=== PATIENT | female | born 1940 | race Caucasian/White ===

== ENCOUNTER 2025-01-15 15:29 | Emergency (ER) | payer MEDICARE, SELFPAY ==
[2025-01-15 15:40] VITALS: BP 126/63; PULSE 96; RESP 18; TEMP 36.7; O2SAT 98
--- NOTE | 2025-01-15 16:21 | ED_ITS ---
HPI - General Adult General Chief complaint: Anxiety Stated complaint: aggressive to staff at [facility] Time Seen by Provider: 01/15/25 15:50 History of Present Illness HPI narrative: Patient is an 84-year-old female with history of dementia who presents ER after being combative with staff. Apparently she had made some swings at staff. She is a frail woman. She then received some oral Ativan and was sent here. Patient has no complaints at this time and does not recall the events. Related Data Allergies Allergy/AdvReac Type Severity Reaction Status Date / Time No Known Allergies Allergy Verified 01/15/25 19:03 Review of Systems Review of Systems: ROS unobtainable: Yes unobtainable due to mental status PMFSH Past Medical History Medical History (Updated 01/15/25 @ 19:20 by Michael Torres MD) Dementia Anxiety Social History Social History Substance use type: does not use Exam Narrative: GENERAL: Well-appearing, well-nourished, and in no acute distress. HEAD: Normocephalic, atraumatic. EYES: PERRL and EOMI. Stye right lower lid. ENT: Mucous membranes moist. CHEST: Clear to auscultation. No respiratory distress. HEART: Regular rate and rhythm. Normal peripheral pulses. ABDOMEN: Soft, nontender, nondistended. EXTREMITIES: Normal range of motion. No edema. SKIN: Warm, dry, no rash. NEURO: Alert and oriented x1. PSYCH: Normal mood and affect. Course Course Emergency Course: Patient resting comfortably. No issues here. She does have UTI. First dose of cephalexin here. Discharge back to facility. Vital Signs Vital signs: Vital Signs Temperature 98.0 F 01/15/25 15:40 Pulse Rate 96 01/15/25 15:40 Respiratory Rate 18 01/15/25 15:40 Blood Pressure 126/63 01/15/25 15:40 Pulse Oximetry 98 01/15/25 15:40 Oxygen Delivery Room Air 01/15/25 15:40 Temperature 98.0 F 01/15/25 15:40 Pulse Rate 96 01/15/25 15:40 Respiratory Rate 18 01/15/25 15:40 Blood Pressure 126/63 01/15/25 15:40 Pulse Oximetry 98 01/15/25 15:40 Oxygen Delivery Room Air 01/15/25 15:40 Medical Decision Making Vital Signs Vital Signs: Vital Signs Temperature 98.0 F 01/15/25 15:40 Pulse Rate 96 01/15/25 15:40 Respiratory Rate 18 01/15/25 15:40 Blood Pressure 126/63 01/15/25 15:40 Pulse Oximetry 98 01/15/25 15:40 Oxygen Delivery Room Air 01/15/25 15:40 Temperature 98.0 F 01/15/25 15:40 Pulse Rate 96 01/15/25 15:40 Respiratory Rate 18 01/15/25 15:40 Blood Pressure 126/63 01/15/25 15:40 Pulse Oximetry 98 01/15/25 15:40 Oxygen Delivery Room Air 01/15/25 15:40 Lab Data Labs: Lab Results 01/15/25 Range/Units 18:07 Urine Color Yellow (Yellow) Urine Appearance Cloudy H (Clear) Urine pH 7.0 (5.0-9.0) Ur Specific [place] 1.011 (1.001-1.035) Urine Protein Negative (Negative) mg/dL Urine Glucose (UA) Negative (Negative) mg/dL Urine Ketones Negative (Negative) mg/dL Ur Blood (Man) Trace (Negative) Urine Nitrate Positive H (Negative) Urine Bilirubin Negative (Negative) Urine Urobilinogen 0.2 (<2.0) mg/dL Leukocyte Esterase Rfl 3+ H (Negative) KIMO/UL Urine RBC 0-2 (0-2) /hpf Urine WBC 51-100 H (0-3) /hpf Ur Squamous Epith Cells None seen (Few) /hpf Urine Bacteria 4+ H /hpf Urine Casts 0-2 Discharge Plan Discharge Clinical Impression: Stye, Acute UTI Patient Disposition: Home Condition: Stable Instructions: Urinary Tract Infection in Women (ED), Onofre (ED) Additional Instructions: You should return to the emergency department if you develop severe nausea and vomiting and are unable to keep liquids down, if you develop severe back/flank or stomach pain, or if your symptoms are not clearly improving at home. Patient Language: Turkmen Prescriptions: New cephalexin 500 mg capsule 500 mg PO Q12H Qty: 14 0RF erythromycin 5 mg/gram (0.5 %) ointment 0.5 inch RIGHT EYE QID Qty: 3.5 0RF Follow-up/Referrals: Ronnell,Dario Pastrana MD [Primary Care Provider] - 1 Week
[2025-01-15 18:43] LABS: Add Urine Microscopic? YES; Appearance Urine Cloudy (Clear); Glucose Urine UA Negative (Negative); Leukocyte Esterase Ur 3+ LEU/UL (Negative); Nitrate Urine Positive (Negative); Non Pathogenic Casts 0-2; Specific Grav Ur 1.011 (1.001-1.035)
[2025-01-15] MEDS: CEPHALEXIN 500 MG CAPSULE PO (19:10)
--- NOTE | 2025-01-15 20:03 | PC.NURSE ---
Pt refused vital signs.
== END 2025-01-15 20:05 | disposition home or self-care (01) ==
PROVIDERS: Emergency Provider Emergency Medicine; PCP Internal Medicine
DX: N39.0 Urinary tract infection, site not specified (principal); H00.012 Hordeolum externum right lower eyelid; F41.9 Anxiety disorder, unspecified; F03.90 Unspecified dementia, unspecified severity, without behavioral disturbance, psychotic disturbance, mood disturbance, and anxiety
CPT/HCPCS: 81001; 87077; 87086; 87186; 99283; A9270

== ENCOUNTER 2025-01-17 07:35 | Emergency (ER) | payer MEDICARE, SELFPAY ==
--- OUTSIDE RECORDS SUMMARY | 2009-11-16 03:45 | XMS_ITS | Continuity of Care Document ---
Author Organization [facility] Address [address] [facility] [address] [place] [address] Phone Care Team Providers Care Vacuum Drier Tender Name Role Phone Michael Cee Unavailable Unavailable [...] Copied on Encounter Office/outpat ient Visit, Est [facility], [address], [place], [place], [address], [place] tel:[phone] [facility] No Information 6201 0 Jaye Rodriguez. [address] [place] , [address], [place], [address], [place]. tel:[phone] [facility], [address], [place], [place], [address], [place] tel:[phone] [facility] No Information 3-201 0 [facility] . [address] [facility], [address], [place], [place], [address], [place]. tel:[phone] Referring Provider: Michael Coker, [facility] [address], [place], [address]. tel:[phone] slade Provider: Fabian Collins, [facility], [place], [address]. tel:[phone] Office/outpat ient Visit, Est [facility], [address], [place], [place], [address], [place] tel:[phone] [facility] No Information Jaye Rodriguez. [address] [place], [place] [address]ate [place] , [address], [place], [address], [place]. tel:[phone] [facility], [address], [place], [place], [address], [place] tel:[phone] [facility] [place] No Information [facility] . [address] [facility], [address], [place], [place], [address], [place]. tel:[phone] Referring Provider: Michael Coker, [address] [place], [place] [address]ate [place] [address], [place], [address]. tel:[phone] slade Provider: Fabian Collins, [address] [place], [place] [address]ate [address], [place], [address]. tel:[phone] [facility], [address], [place], [place], [address], [place] tel:[phone] [facility] No Information 8 Jaye Rodriguez. [address] [place] [address] , [address], [place], [address], [place]. tel:[phone] Office/outpat ient Visit, Est [facility], [address], [place], [place], [address], [place] tel:[phone] [facility] No Information Keagan-0 9-200 8 Jaye [address]. [address] [facility] , [address], [place], [address], [place]. tel:[phone] [facility], [address], [place], [place], [address], [place] tel:[phone] [facility] No Information Dec-0 3-200 7 Jaye Rodriguez. [address] [facility] , [address], [place], [address], [place]. tel:[phone] Family History Family Member Type Diagnosis Age At Onset No Information Payers Payer name Insurance type Covered democrat ID Authordarricka tilulu(s) [place] [id number] [employer] [facility] [id number] Social History Type Description Quantity Date Captured [...]
[2025-01-17] VITALS (7 sets, daily range): BP systolic 122–149; BP diastolic 62–93; PULSE 72–99; RESP 16–23; TEMP 36.7; O2SAT 96–100
--- NOTE | ~2025-01-17 | CT_ITS ---
EXAM: CT brain wo con - 01/17/2025 8:10 CDT History: 84 years old Female with fall COMPARISON: None available. PROCEDURE: CT of the head without contrast. Axial, sagittal and coronal reformatted planes were evaluated. Automatic exposure control was used for this study. FINDINGS: BRAIN PARENCHYMA: No acute hemorrhage. No mass effect or herniation. Kennedy-white matter differentiation is maintained. Mild chronic volume loss. Scattered hypodensities in subcortical and periventricular white matter, likely representing chronic microvascular ischemic changes in this age group. Atherosc lerotic calcification of the intracranial vessels is noted. VENTRICLES/ EXTRA-AXIAL SPACES: No hydrocephalus or extra-axial fluid collection. EXTRACRANIAL STRUCTURES: No calvarial fracture. Nonobstructive paranasal sinus mucosal disease. IMPRESSION: 1. No evidence for acute intracranial hemorrhage or calvarial fracture. 2. Nonobstructive paranasal sinus mucosal disease, as described above. Correlate clinically for acute sinusitis. Reviewed, dictated and finalized at location N. IMPRESSION: 1. No evidence for acute intracranial hemorrhage or calvarial fracture. 2. Nonobstructive paranasal sinus mucosal disease, as described above. Correla te clinically for acute sinusitis.
--- NOTE | ~2025-01-17 | CT_ITS ---
EXAM: CT thoracic lumbar wo con - 01/17/2025 8:10 CDT History: 84 years old Female with fall Comparison None Technique Thin helical images obtained without intravenous contrast according to standard protocol. Coronal and sagittal reformatted images are provided. Findings No fracture or gross subluxation is appreciated. Alignment is satisfactory. Multilevel degenerative changes are seen in the spine. No intraspinal or paraspinal mass or hematoma appreciated. No significant lesion of the visualized airway or lungs. 1.7 cm right renal calculus. 3.7 cm simple cyst in the right adnexa. No gross mass or adenopathy identified, considering lack of IV contrast for this exam. Impression: 1. No acute abnormality of the thoracic or lumbar spine detected by CT. Reviewed, dictated and finalized at location N. Impression: 1. No acute abnormality of the thoracic or lumbar spine detected by CT.
--- NOTE | ~2025-01-17 | CT_ITS ---
EXAMINATION: CT cervical spine wo con COMPARISON: None HISTORY: fall TECHNIQUE: Axial images were obtained through the spine without IV contrast. Coronal, sagittal reconstruction images were obtained from the axial views. CT scan performed using dose optimization techniques including the following automated exposure control; adjustment of mA and/or kV; use of iterative reconstruction technique. Automatic exposure control was used to reduce radiation dose. Permanent radiation dose record is archived to PACS. FINDINGS: The vertebral heights are intact. No fracture or subluxation. The disc heights are intact. Soft tissues unremarkable. Impression: No acute abnormality. Reviewed, dictated and finalized at location A. Impression: No acute abnormality.
--- NOTE | ~2025-01-17 | XR_ITS ---
EXAMINATION: XR chest 1V DATE: 01/17/2025 08:23 INDICATION: Fall. Confusion. TECHNIQUE: frontal view of the chest was obtained. COMPARISON: None FINDINGS: The lungs are clear with no focal airspace opacities, pulmonary edema, pleural effusion or pneumothorax. The cardiomediastinal silhouette is normal. Large calcified right renal stone in the right upper quadrant. IMPRESSION: 1. No acute cardiopulmonary disease. 2. Right nephrolithiasis. Reviewed, dictated and finalized at location A.
--- NOTE | 2025-01-17 08:03 | ED.FALL ---
HPI - Fall General Chief Complaint: Fall Stated Complaint: glf last noc Time Seen by Provider: 01/17/25 08:01 Source: patient and EMS Mode of arrival: EMS Limitations: dementia History of Present Illness HPI Narrative: 84 years old white female came from [facility] ambulance because of ground level fall on witnessed prior to arrival. History of dementia, patient oriented to her name only, denying any symptoms. Related Data Allergies Allergy/AdvReac Type Severity Reaction Status Date / Time ciprofloxacin Allergy Unknown Unknown Verified 01/17/25 07:53 sulfamethoxazole (From Allergy Unknown Unknown Verified 01/17/25 07:53 Bactrim) trimethoprim (From Bactrim) Allergy Unknown Unknown Verified 01/17/25 07:53 Review of Systems Review of Systems: ROS unobtainable: Yes unobtainable due to mental status PMFSH Past Medical History Medical History Dementia Anxiety Social History Social History Substance use type: does not use Exam Narrative: General appearance: Well-developed, well-nourished Skin: Normal color, abrasion on the right lower leg, Head: Normocephalic, nontraumatic Eyes: Clear conjunctiva ENT: Oropharynx normal, ears normal, nose normal Neck: Supple, nontender Chest and respiratory: Airway patent, no respiratory distress, no accessory muscle use Heart: Regular rate/rhythm Abdomen: Soft, nontender, no organomegaly, quiet bowel sounds Vascular: Normal peripheral pulses, normal capillary refill. Musculoskeletal: Normal range of motion, nontender back Neurologic: Alert and oriented to her name only Course Vital Signs Vital signs: Vital Signs Temperature 36.7 C 01/17/25 07:39 Pulse Rate 72 01/17/25 07:39 Respiratory Rate 20 01/17/25 07:39 Blood Pressure 126/75 01/17/25 07:39 Pulse Oximetry 97 01/17/25 07:39 Oxygen Delivery Room Air 01/17/25 07:39 Temperature 36.7 C 01/17/25 07:39 Pulse Rate 86 01/17/25 10:01 Respiratory Rate 19 01/17/25 10:01 Blood Pressure 129/66 01/17/25 10:01 Pulse Oximetry 100 09/16/25 10:01 Oxygen Delivery Room Air 01/17/25 07:39 MDM - Fall MDM Narrative Medical decision making narrative: patient came with ground level fall, vital signs are stable Physical examination remarkable for dementia and slight abrasion on right lower leg, patient able to move all extremities without limitation CT head, cervical spine, thoracic spine and lumbar spine showed no acute osseous abnormality Blood workup today includes CBC, CMP showed elevated CPK 485 with normal BUN ,creatinine Urinalysis showed no significant evidence of infection Discharge back to [facility], encourage fluid intake, fall prevention protocol the pt was discharged to [facility].the pt,s condition upon discharge was fair,education was provided to the pt, family in reference to the final impression,discharge study results,treatment,prognosis and need for follow up . Differential Diagnosis Differential diagnosis: Likely other ( electrolyte imbalance, urinary tract infection, dehydration) Medical Records Attestation: I reviewed the patient's medical records. Lab Data Attestation: I reviewed the patient's lab results. 01/17/25 08:34 01/17/25 08:34 Labs: Lab Results 01/17/25 01/17/25 Range/Units 08:34 09:09 WBC 7.1 (4.5-10.0) K/mm3 RBC 4.12 L (4.2-5.4) M/mm3 Hgb 12.5 (12.0-15.0) g/dL Hct 38.4 (37.0-47.0) % MCV 93.2 (80-100) fl MCH 30.3 (26-34) pg MCHC 32.6 (32-36) g/dl RDW 12.4 (11.5-14.5) % Plt Count 183 (150-375) k/mm3 MPV 9.5 (7.4-10.4) fl Immature Gran % (Auto) 0.1 (0-0.5) % Neut % (Auto) 80.3 H (45.5-73.1) % Lymph % (Auto) 10.0 L (18.3-44.2) % [place] % (Auto) 8.6 H (2.6-8.5) % Eos % (Auto) 0.6 (0-4.4) % Baso % (Auto) 0.4 (0.2-1.2) % Lymph # (Auto) 0.71 L (0.9-3.2) K/mm3 [place] # (Auto) 0.6 (0.1-0.6) K/mm3 Eos # (Auto) 0.0 (0-0.3) K/mm3 Baso # (Auto) 0.0 (0.0-0.1) K/mm3 Abs Immat Gran (auto) 0.01 (0.00-0.031) K/mm3 Absolute Neuts (auto) 5.7 (1.3-6.7) K/mm3 Absolute Nucleated RBC 0.000 (0.0-0.012) K/mm3 Nucleated RBC % 0.0 (0.0-0.2) % Sodium 138 (137-145) mmol/L Potassium 3.6 (3.4-5.0) mmol/L Chloride 103 (98-107) mmol/L Carbon Dioxide 29 (22-30) mmol/L Anion Gap 6 (4-12) mmol/L BUN 15 (7-17) mg/dL Creatinine 0.60 L (0.7-1.0) mg/dL Estim Creat Clear Calc 48 ml/min Estimated GFR > 60 (59 - ) Glucose 106 (65-110) mg/dL Calcium 9.1 (8.4-10.2) mg/dL Total Bilirubin 1.3 (0.2-1.3) mg/dL AST 47 H (14-36) U/L ALT 20 (6-35) U/L Alkaline Phosphatase 97 (38-126) U/L Total Creatine Kinase 485 H (30-135) U/L Total Protein 7.7 (6.3-8.2) g/dL Albumin 4.0 (3.5-5.1) g/dL Urine Color Yellow (Yellow) Urine Appearance Clear (Clear) Urine pH 6.0 (5.0-9.0) Ur Specific [place] 1.018 (1.001-1.035) Urine Protein Trace (Negative) mg/dL Urine Glucose (UA) Negative (Negative) mg/dL Urine Ketones Trace H (Negative) mg/dL Ur Blood (Man) Negative (Negative) Urine Nitrate Negative (Negative) Urine Bilirubin Negative (Negative) Urine Urobilinogen 0.2 (<2.0) mg/dL Add Ur Microanalysis Reviewed Leukocyte Esterase Rfl 1+ H (Negative) KIMO/UL Urine RBC 0-2 (0-2) /hpf Urine WBC 0-5 (0-3) /hpf Ur Squamous Epith Cells None seen (Few) /hpf Urine Bacteria None seen /hpf Urine Casts 0-2 Imaging Data Radiologist's impression: Impressions Cervical Spine CT 01/17/25 08:20 Impression: No acute abnormality. Head CT 01/17/25 08:20 IMPRESSION: 1. No evidence for acute intracranial hemorrhage or calvarial fracture. 2. Nonobstructive paranasal sinus mucosal disease, as described above. Correlate clinically for acute sinusitis. Thoracic/Lumbar Spine CT 01/17/25 08:23 Impression: 1. No acute abnormality of the thoracic or lumbar spine detected by CT. Chest X-Ray 01/17/25 08:27 IMPRESSION: 1. No acute cardiopulmonary disease. 2. Right nephrolithiasis. Critical Care Time Critical Care Time Critical Care Time: No Discharge Plan Discharge Clinical Impression: Fall Patient Disposition: [facility] Skilled Nursing/Asst Living Condition: Stable Instructions: Fall Prevention for Older Adults (ED), Abrasion (ED) Additional Instructions: Return if symptoms are worsening , call your family physician for appointment, take Tylenol as as needed for aches and pain, continue home medications. Encourage fluid intake Patient Language: Citizen Of [place] Prescriptions: No Action cephalexin 500 mg capsule 500 mg PO Q12H Qty: 14 0RF erythromycin 5 mg/gram (0.5 %) ointment 0.5 inch RIGHT EYE QID Qty: 3.5 0RF Follow-up/Referrals: Ronnell,Dario Pastrana MD [Primary Care Provider]
[2025-01-17 08:41] LABS: Hematocrit 38.4 % (37.0-47.0); Hemoglobin 12.5 g/dL (12.0-15.0); Immature Granulocyte Percent A 0.1 % (0-0.5); Lymphocytes Absolute Auto 0.71 K/mm3 (0.9-3.2); Mean Corpuscular HGB Conc 32.6 g/dl (32-36); Mean Corpuscular Hemoglobin 30.3 pg (26-34); Mean Corpuscular Volume 93.2 fl (80-100); Nucleated Red Blood Cells Absolute Auto 0.000 K/mm3 (0.0-0.012); Nucleated Red Blood Cells Perc 0.0 % (0.0-0.2); Platelet Count Result 183 k/mm3 (150-375); Red Blood Count 4.12 M/mm3 (4.2-5.4); White Blood Count 7.1 K/mm3 (4.5-10.0)
--- OUTSIDE RECORDS SUMMARY | 2025-01-17 08:45 | XMS_ITS | Encounter Summary ---
Author Organization [facility] Address [address] [place] [address] Care Team Providers Care Credit Review Manager Name Role Phone Unavailable Primary Care Provider Unavailabl e Encounter Details Date Type Department Care Team (Late st Contact Info) Description 12/25/2022 Lab Requisition [facility] - DermPath Lab [address] [place] [id number] Kendell Brar MD [address] [place], [place] [id number] Social History Tobacco Use Types Packs/Day Years Used Date Smoking Tobacco: Never Assessed Comments Unknown Sex and Gender Information Value Date Recorded Sex Assigned at Not on file Legal Sex Female 5:21 PM CDT Gender Identity Not on file Sexual Orientation Not on file documented as of this encounter Plan of Treatment Not on file documented as of this encounter Procedures Procedure Name Priority Date/Time Associated Diagnosis Comments DERMATOPATHOLOGY Routine 12/24/2022 12:0 0 AM CDT documented in this encounter Results * DERMATOPATHOLOGY (12/24/2022 12:00 AM CDT) Case Report Dermatopathology Report Case: [id number] Authorizing Provider: Kendell Brar MD Collected: 12/24/2022 12:00 AM Ordering Location: [facility] DermPath Lab Received: 12/26/2022 08:55 AM Pathologist: Renu Babcock MD Specimen: Skin, floor of left cavum of the yessenia 3:35 PM CDT DERMATOPATHOLOGY LABORATORY Final Diagnosis Specimen A. SKIN, floor of left cavum of the yessenia: EPIDERMOID CYST (L72.0) 3:35 PM CDT DERMATOPATHOLOGY LABORATORY at 1535 CDT Clinical History R/O Cyst 3:35 PM T DERMATOPATHOLOGY LABORATORY Gross Description Specimen A: Received is one formalin filled container labeled with the patient's name and designated floor of left cavum of the yessenia. The specimen consists of a shave biopsy multiple pieces, measuring 15x5x1 mm. Jar 0. 3:35 PM [facility] DERMATOPATHOLOGY LABORATORY Microscopic Description Specimen A. SKIN, floor of left cavum of the yessenia: Within the dermis, there is a space lined by epithelium that resembles normal epidermis and the infundibular portion of the hair follicle. 3:35 PM T DERMATOPATHOLOGY LABORATORY Disclaimer An external and internal positive and negative controls are appropriate for the histochemical, immunohistochemical and immunofluorescence stain(s) in this case (if any), except where stated explicitly. The performance characteristics of the stain(s) cited in this report were developed and its performance characteristic determined by the Dermatopathology Laboratory at [facility], directed by Dr. Mihai Mclain. These tests need not be, and therefore are not, approved by the [place] Food and Drug Administration. The tests are used for clinical purposes. Billing Codes Specimen Charges Stain Charges 64685 1 3:35 PM T DERMATOPATHOLOGY LABORATORY Embedded Images 3:35 PM T DERMATOPATHOLOGY LABORATORY Pathology/Cytolog y TISSUE SPECIMEN FROM SKIN / Unknown 12/24/2022 12/26/2022 8:55 AM CDT Kendell Brar MD LAB - PATHOLOGY/CYTOLOGY ORD ERABLES Final Result DERMATOPATHOLOGY LABORATORY [facility] - Department of Dermatology [address], [address] [phone] documented in this encounter Visit Diagnoses Not on filedocumented in this encounter
--- OUTSIDE RECORDS SUMMARY | 2025-01-17 08:45 | XMS_ITS | Encounter Summary ---
Author Organization [facility] Address [address] [facility] [place] [address] Care Team Providers Care Equipment Specialist Name Role Phone Unavailable Primary Care Provider Unavailabl e Encounter Details Date Type Department Care Team (Late st Contact Info) Description 02/08/2020 Lab Requisition [facility] DermPath Lab [address] [place] [address] Kendell Brar MD [address] [place] [address] Social History Tobacco Use Types Packs/Day Years [...] Priority Date/Time Associated Diagnosis Comments DERMATOPATHOLOGY Routine 02/07/2020 12:0 0 AM CDT documented in this encounter Results * DERMATOPATHOLOGY (02/07/2020 12:00 AM CDT) Case Report Dermatopathology Report Case: [id number] Authorizing Provider: Kendell Brar MD Collected: 02/07/2020 12:00 AM Ordering Location: [facility] DermPath Lab Received: 02/08/2020 01:14 PM Pathologist: Skye Galdamez MD Specimen: Skin, right mid lat back 0 3:17 PM CDT DERMATOPATHOLOGY LABORATORY Final Diagnosis Specimen A. SKIN, right mid lat back: SEBORRHEIC KERATOSIS, INFLAMED (L82.0) 0 3:17 PM CDT DERMATOPATHOLOGY LABORATORY at 1516 CDT Clinical History R/o ISK, BCC, melanocyte lesion 0 3:17 PM CDT DERMATOPATHOLOGY LABORATORY Gross Description Specimen A: Received is one formalin filled container labeled with the patient's name and designated right mid lat back. The specimen consists of a shave biopsy measuring 10x9x1 mm. Jar 0. 0 3:17 PM CDT DERMATOPATHOLOGY LABORATORY Microscopic Description Specimen A. SKIN, right mid lat back: There is hyperkeratosis, parakeratosis, papillomatosis, and acanthosis of the epidermis. There is a lymphohistiocytic infiltrate within the papillary dermis that is focally lichenoid. 0 3:17 PM CDT DERMATOPATHOLOGY LABORATORY Disclaimer An external and internal positive and negative controls are appropriate for the histochemical, immunohistochemical and immunofluorescence stain(s) in this case (if any), except where stated explicitly. The performance characteristics of the stain(s) cited in this report were developed and its performance characteristic determined by the Dermatopathology Laboratory at [facility], directed by Dr. Mihai Mclain. These tests need not be, and therefore are not, approved by the [place] Food and Drug Administration. The tests are used for clinical purposes. Billing Codes Specimen Charges Stain Charges 53305 1 0 3:17 PM CDT DERMATOPATHOLOGY LABORATORY Embedded Images 0 3:17 PM CDT DERMATOPATHOLOGY LABORATORY Pathology/Cytolog y TISSUE SPECIMEN FROM SKIN / Unknown 02/07/2020 02/08/2020 1:14 PM CDT Kendell Brar MD LAB - PATHOLOGY/CYTOLOGY ORD ERABLES Final Result DERMATOPATHOLOGY LABORATORY [facility] - Department of Dermatology [address], [address] [phone] documented in this encounter Visit Diagnoses Not on filedocumented in this encounter
--- OUTSIDE RECORDS SUMMARY | 2025-01-17 08:45 | XMS_ITS | Clinical Summary ---
Author Organization [facility] Address [address] [place] [address] Care Team Providers Care Fancy Sewer Name Role Phone Unavailable Primary Care Provider Unavailabl e Source Comments [facility],non-owned Affiliates and Associated Physician Practices is amultiple site organization consisting of ambulatory clinics and hospital sitesin [place], [place], [place] and [place]. This disclosure is being madepursuant to the Care Everywhere program and may not contain all information available regarding this patient. Last updated 18.[facility] Doctor kinetic Social History Tobacco Use Types Packs/Day Years Used Date Smoking Tobacco: Never Assessed Comments Unknown Sex and Gender Information Value Date Recorded Sex Assigned at Not on file Legal Sex Female 5:21 PM CDT Gender Identity Not on file Sexual Orientation Not on file Plan of Treatment Health Maintenance Due Date Last Done Comments BONE DENSITY TESTING 1938 DTAP/TDAP/TD VACCINES (1 - Tdap) 1957 PNEUMOCOCCAL VACCINE 50+ (1 of 1 - PCV) 1988 ZOSTER VACCINE (1 of 2) 1988 Respiratory Syncytial Virus (RSV) Vaccine Pt: or over 60 yrs (1 - 1-dose 75+ series) 2013 DEPRESSION SCREENING 2024 MEDICARE AWV CALENDAR YEAR 2024 COVID-19 VACCINE ( - 2023-2 5 season) 2025 INFLUENZA VACCINE (#1) 2025 HEPATITIS B VACCINE Aged Out No longe r eligible based on patient's age to complete this topic HIB VACCINE Aged Out No longer eligi ble based on patient's age to complete this topic HPV VACCINE Aged Out No longer eligi ble based on patient's age to complete this topic MENINGOCOCCAL (Group B) VACC INE SHARED DECISION-MAKING Aged Out No longer eligibl e based on patient's age to complete this topic MENINGOCOCCAL GROUPS A/C/Y/W VACCINE Aged Out No longer eligible b ased on patient's age to complete this topic Insurance MEDICARE [employer] MANAGED MEDICARE ADV
[2025-01-17 09:04] LABS: Alanine Aminotransferase 20 U/L (6-35); Albumin Level 4.0 g/dL (3.5-5.1); Alkaline Phosphatase 97 U/L (38-126); Anion Gap 6 mmol/L (4-12); Aspartate Amino Transferase 47 U/L (14-36); Bilirubin,Total 1.3 mg/dL (0.2-1.3); Blood Urea Nitrogen 15 mg/dL (7-17); Calcium 9.1 mg/dL (8.4-10.2); Carbon Dioxide 29 mmol/L (22-30); Chloride 103 mmol/L (98-107); Creatine Kinase 485 U/L (30-135); Estimated CRCL calculation 48 ml/min; Estimated Glomerular Filt Rate > 60; Glucose 106 mg/dL (65-110); Potassium 3.6 mmol/L (3.4-5.0); Sodium 138 mmol/L (137-145); Total Protein 7.7 g/dL (6.3-8.2)
[2025-01-17 09:38] LABS: Add Urine Microscopic? YES; Appearance Urine Clear (Clear); Glucose Urine UA Negative (Negative); Leukocyte Esterase Ur 1+ LEU/UL (Negative); Need Manual Microscopic Reviewed; Nitrate Urine Negative (Negative); Non Pathogenic Casts 0-2; Specific Grav Ur 1.018 (1.001-1.035)
== END 2025-01-17 11:40 ==
PROVIDERS: Emergency Provider Emergency Medicine; PCP Internal Medicine
DX: S80.811A Abrasion, right lower leg, initial encounter (principal); F03.90 Unspecified dementia, unspecified severity, without behavioral disturbance, psychotic disturbance, mood disturbance, and anxiety; N20.0 Calculus of kidney; W18.30XA Fall on same level, unspecified, initial encounter
CPT/HCPCS: 36415; 70450; 71045; 72125; 72128; 72131; 80053; 81001; 82550; 85025; 87086; 99284

== ENCOUNTER 2025-03-09 17:53 | Emergency (ER) | payer MEDICARE, SELFPAY ==
--- OUTSIDE RECORDS SUMMARY | 2009-11-16 02:45 | XMS_ITS | Continuity of Care Document ---
Author Organization [facility] Address [address] [facility] [address] [place] [address] Phone Care Team Providers Care Winder Operator Name Role Phone Michael Cee Unavailable Unavailable Procedures Procedure Date Office/outpatient Visit, Est Tint Plastic, Non-Nydia Office/outpatient Visit, Est No Script Progressive Lens, Plastic Frames Deluxe Tax - Medical Eye Exam & Treatment Refraction Office/outpatient Visit, Est Eye Exam & Treatment Visual Functional Status Assessed Refraction Advance Directives Directive Yes / No Effective Date File Name No Information Encounters Encounter Description Practice Location Reason(s) For Visit Diagnoses Date Provider Providers Copied on Encounter Office/outpat ient Visit, Est [facility], [address], [place], [place], [address], [place] tel:[phone] [facility] [facility] No Information 201 0 Jaye Rodriguez. [address] , [address], [place], [address], [place]. tel:[phone] [facility], [address], [place], [place], [address], [place] tel:[phone] [facility] [place] [facility] No Information 3-201 0 [facility] . [address] [facility], [address], [place], [place], [address], [place]. tel:[phone] Referring Provider: Michael Coker, [facility] [address], [place], [address]. tel:[phone] slade Provider: Fabian Collins, [facility], [place], [address]. tel:[phone] Office/outpat ient Visit, Est [facility], [address], [place], [place], [address], [place] tel:[phone] [facility] No Information Jaye Rodriguez. [address] [place], [place] [address] , [address], [place], [address], [place]. tel:[phone] [facility], [address], [place], [place], [address], [place] tel:[phone] [facility] [place] No Information [facility] . [address] [facility], [address], [place], [place], [address], [place]. tel:[phone] Referring Provider: Michael Coker, [address] [place], [place] [address], [place], [address]. tel:[phone] slade Provider: Fabian Collins, [address] [place], [place] [address], [place], [address]. tel:[phone] [facility], [address], [place], [place], [address], [place] tel:[phone] [facility] No Information 8 Jaye Rodriguez. [address] [place] [address] , [address], [place], [address], [place]. tel:[phone] Office/outpat ient Visit, Est [facility], [address], [place], [place], [address], [place] tel:[phone] [facility] [facility] No Information Keagan-0 9-200 8 Jaye Edblanca. [address] [facility] , [address], [place], [address], [place]. tel:[phone] [facility], [address], [place], [place], [address], [place] tel:[phone] [facility] [facility] No Information Dec-0 3-200 7 Jaye Rodriguez. [address] [facility] , [address], [place], [address], [place]. tel:[phone] Family History Family Member Type Diagnosis Age At Onset No Information Payers Payer name Insurance type Covered democrat ID Authordarricka tilulu(s) [place] [id number] [employer] [facility] [id number] Social History Type Description Quantity Date Captured Comments Sex Female Smoking Status No Information Chief Complaint And Reason For Visit No Information Reason For Referral Reason For Referral No Information History Of Present Illness Encounter Date Complaint History Of Prese nt Illness No Information Functional Status Date Functional Assessmen t No Information Instructions Date Instruction Additional Infor mation No Information Assessments Type Assessment Date No Information Patient Care Teams Name Effective Dates (start - stop) Status Members No Information
--- OUTSIDE RECORDS SUMMARY | 2009-11-16 02:45 | XMS_ITS | Continuity of Care Document ---
Author Organization [facility] Address [address] [facility] [address] [place] [address] Phone Care Team Providers Care Intercell Connector Placer Name Role Phone Michael Cee Unavailable Unavailable [...] Copied on Encounter Office/outpat ient Visit, Est [facility], [address], [place], [place], [address], [place] tel:[phone] [facility] No Information 201 0 Jaye Rodriguez. [address] , [address], [place], [address], [place]. tel:[phone] [facility], [address], [place], [place], [address], [place] tel:[phone] [facility] No Information 3-201 0 [facility] . [address] [facility], [address], [place], [place], [address], [place]. tel:[phone] Referring Provider: Michael Coker, [facility] [address], [place], [address]. tel:[phone] slade Provider: Fabian Collins, [facility], [place], [address]. tel:[phone] Office/outpat ient Visit, Est [facility], [address], [place], [place], [address], [place] tel:[phone] [facility] No Information Jaye Rodriguez. [address] [place], [place] [address] , [address], [place], [address], [place]. tel:[phone] [facility], [address], [place], [place], [address], [place] tel:[phone] [facility] [place] No Information [facility] . [address] [facility], [address], [place], [place], [address], [place]. tel:[phone] Referring Provider: Michael Coker, [address] [place], [place] [address], [place], [address]. tel:[phone] slade Provider: Fabian Collins, [address] [place], [place] [address]ate [address], [place], [address]. tel:[phone] [facility], [address], [place], [place], [address], [place] tel:[phone] [facility] No Information 8 Jaye Rodriguez. [address] [place] [address] , [address], [place], [address], [place]. tel:[phone] Office/outpat ient Visit, Est [facility], [address], [place], [place], [address], [place] tel:[phone] [facility] No Information Keagan-0 9-200 8 Jaye Ed[place]anca. [address] [facility] , [address], [place], [address], [place]. tel:[phone] [facility], [address], [place], [place], [address], [place] tel:[phone] [facility] No Information Dec-0 3-200 7 Jaye Rodriguez. [address] [facility] , [address], [place], [address], [place]. tel:[phone] Family History Family Member Type Diagnosis Age At Onset No Information Payers Payer name Insurance type Covered green party ID Authordarricka tilulu(s) [place] [id number] [employer] [facility] [id number] Social History Type Description Quantity Date Captured [...]
[2025-03-09 18:02] VITALS: BP 143/78; PULSE 92; RESP 16; TEMP 36.9; O2SAT 99
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
--- OUTSIDE RECORDS SUMMARY | 2025-03-09 21:13 | XMS_ITS | Encounter Summary ---
Author Organization [facility] Address [address] [place] [address] Care Team Providers Care School Office Assistant Name Role Phone Unavailable Primary Care Provider Unavailabl e Encounter Details Date Type Department Care Team (Late st Contact Info) Description 12/25/2022 Lab Requisition [facility] - DermPath Lab [address] [place] [phone] Kendell Brar MD [address] [place], [place] [id number] Social History Tobacco Use Types Packs/Day Years [...] AM CDT) Case Report Dermatopathology Report Case: [id number] Authorizing Provider: Kendell Brar MD Collected: 12/24/2022 12:00 AM Ordering Location: [facility] DermPath Lab Received: 12/26/2022 08:55 AM Pathologist: [...] measuring 15x5x1 mm. Jar 0. 3:35 PM [facility] DERMATOPATHOLOGY LABORATORY Microscopic Description Specimen A. SKIN, [...] characteristic determined by the Dermatopathology Laboratory at [facility], directed by Dr. Mihai Mclain. These tests need not be, and therefore are not, approved by the [place] Food and Drug Administration. The tests are used for clinical purposes. Billing Codes Specimen Charges Stain Charges 08145 1 3:35 PM T DERMATOPATHOLOGY LABORATORY Embedded Images 3:35 PM T DERMATOPATHOLOGY LABORATORY Pathology/Cytolog y TISSUE SPECIMEN FROM SKIN / Unknown 12/24/2022 12/26/2022 8:55 AM CDT Kendell Brar MD LAB - PATHOLOGY/CYTOLOGY ORD ERABLES Final Result DERMATOPATHOLOGY LABORATORY [facility] - Department of Dermatology [address] [phone] documented in this encounter Visit Diagnoses Not on filedocumented in this encounter
--- OUTSIDE RECORDS SUMMARY | 2025-03-09 21:13 | XMS_ITS | Encounter Summary ---
Author Organization [facility] Address [address] [facility] [place] [address] Care Team Providers Care Coring Machine Operator Name Role Phone Unavailable Primary Care Provider Unavailabl e Encounter Details Date Type Department Care Team (Late st Contact Info) Description 02/08/2020 Lab Requisition [facility] DermPath Lab [address] [place] [address] Kendell Brar MD [address] [place] [address] Social History Tobacco Use Types [...] AM CDT) Case Report Dermatopathology Report Case: [id number] Authorizing Provider: Kendell Brar MD Collected: 02/07/2020 12:00 AM Ordering Location: [facility] DermPath Lab Received: 02/08/2020 01:14 PM [...] characteristic determined by the Dermatopathology Laboratory at [facility], directed by Dr. Mihai Mclain. These tests need not be, and therefore are not, approved by the [place] Food and Drug Administration. The tests are used for clinical purposes. Billing Codes Specimen Charges Stain Charges 94852 1 0 3:17 PM CDT DERMATOPATHOLOGY LABORATORY Embedded Images 0 3:17 PM CDT DERMATOPATHOLOGY LABORATORY Pathology/Cytolog y TISSUE SPECIMEN FROM SKIN / Unknown 02/07/2020 02/08/2020 1:14 PM CDT Kendell Brar MD LAB - PATHOLOGY/CYTOLOGY ORD ERABLES Final Result DERMATOPATHOLOGY LABORATORY [facility] - Department of Dermatology [address] [phone] documented in this encounter Visit Diagnoses Not on filedocumented in this encounter
--- OUTSIDE RECORDS SUMMARY | 2025-03-09 21:13 | XMS_ITS | Data Portability ---
Author Organization [facility] All Web Leads, Main Office Address [address] [place] [address] Care Team Providers Care Final Touch Up Painter Name Role Phone REGINA REYNAGA Primary Care Provider REGINA REYNAGA Referring Provider Assessment Encounter Date Assessment Date Assessment LastModified by Organization Details LastModified Time 07/14/2024 07/14/2024 This note is dictated and transcribed by [employer]. Scrapper variances may occur. Despite proofreading, typographical errors may occur. Occasional wrong-word or 'ripiz-o-dqis' substitutions may have occurred due to the inherent limitations of voice recording. Read the chart carefully and recognize, using context, where substitutions have occurred. Not available 07/14/2024 14:35:48 10/20/2024 10/20/2024 This note is dictated and transcribed by [employer]. Scrapper variances may occur. Despite proofreading, typographical errors may occur. Occasional wrong-word or 'itgcn-q-sfnx' substitutions may have occurred due to the inherent limitations of voice recording. Read the chart carefully and recognize, using context, where substitutions have occurred. Not available 10/20/2024 14:34:56 Plan of Treatment Reminders Order Date Submit Date Provider Last Modified By Organization Details Last Modified Time Details Appointments None recorded. Lab vitamin D, 25-hydrox y, total, serum 025 025 [facility] - Outpatient Lab, [address] [place], [address], 09:11:03 vitamin B12, serum 025 025 [facility] - Outpatient Lab, [address] [place], [address], 5 09:10:59 T4, free, serum 025 025 [facility] Outpatient Lab, [address] [place], [address], 5 09:11:00 TSH, serum or plasma 025 025 [facility] Outpatient Lab, [address] [place], [address], 5 09:11:02 CBC w/ auto diff 025 025 [facility] Outpatient [facility], [address] [place], [address], 5 09:10:58 Referral None recorded. Procedures None recorded. Surgeries None recorded. Imaging None recorded. Medication Orders None recorded. Patient TargetsNo targets recorded. 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 Has been followed by Neurology has been put on memantine. No interval complaints of any new problems. Irritable bowel status is stable with looseness. Blood work is adequate see no reason to repeat any at this time. Will continue on current Rx and follow-up in four months Follow Up: 4 Months Approximate Date: 09/20/2024 Portions of the record may have been created with voice recognition software. Occasional wrong-word or s ound-a-like substitutions may have occurred due to the inherent limitations of voice recognition software. Read the chart carefully and recognize, using context, where substitutions have occurred. Created: Regina Reynaga M.D. 05.23.2024 09:45 AM [email or web address] Not available 05/23/2024 10:45:59 09/19/2024 [id number] Dementia, osteoporosis peripheral vascular disease all clinically stable. Will check some blood work in the form of CBC, CMP, thyroid and B12 level. Continue on current Rx follow-up in four months Follow Up: 4 Months Approximate Date: 01/17/2025 Portions of record are template driven. When necessary additional context will be provided. Additionally some portions have been created with voice recognition software. Occasional wrong-word or s ound-a-like substitutions may have occurred due to the inherent limitations of voice recognition software. Read the chart carefully and recognize, using context, where substitutions may have occurred. Created: Regina Reynaga M.D. 09.19.2024 10:43 AM [email or web address] Not available 09/19/2024 11:44:00 Reason for Referral None Reported. Results Created Date Observation Date Name Description Value Unit Range Abnormal Flag Note LastModifiedBy Organization Detail LastModifiedTime 09/23/1909/23/2024 CBC (INCL UDES DIFF/ PLT) white blood cell count 6.2 thous and/u L 3.8-10 .8 normal Not Available [address], [address], 09/23/2024 09:10:58 09/23/1909/23/2024 CBC (INCL UDES DIFF/ PLT) red blood cell count 4.00 janna on/uL 3.80-5 .10 normal Not Available [address], [address], 09/23/2024 09:10:58 09/23/19 25 09/23/2024 CBC (INCL UDES DIFF/ PLT) hemoglobin 12.4 g/dL 11.7-1 5.5 normal Not Available [address], [address], 09/23/2024 09:10:58 09/23/1909/23/2024 CBC (INCL UDES DIFF/ PLT) hematocrit 39.3 % 35.0-4 5.0 normal Not Available [address], [address], 09/23/2024 09:10:58 09/23/1909/23/2024 CBC (INCL UDES DIFF/ PLT) MCV 98.3 fL 80.0-1 00.0 normal Not Available [facility] - [address], [address], 09/23/2024 09:10:58 09/23/1909/23/2024 CBC (INCL UDES DIFF/ PLT) MCH 31.0 pg 27.0-3 3.0 normal Not Available [facility] [address], [address], 09/23/2024 09:10:58 09/23/1909/23/2024 CBC (INCL UDES DIFF/ PLT) MCHC 31.6 g/dL 32.0-3 6.0 low For adult s, a sligh t decre ase in the calcu lated MCHC value (in the range of 30 to 32 g/dL) is most likel y not clini chantel signi fican t; tony er, it shoul d be inter prete d with cauti on in [facility] n with other red cell chantelle eters and the patie nt's clini ryan condi tion. Not Available [facility] [address], [address], 09/23/2024 09:10:58 09/23/1909/23/2024 CBC (INCL UDES DIFF/ PLT) RDW 11.8 % 11.0-1 5.0 normal Not Available [facility] [address], [address], 09/23/2024 09:10:58 09/23/1909/23/2024 CBC (INCL UDES DIFF/ PLT) platelet count 230 thous and/u L 140-40 0 normal Not Available [facility] [address], [address], 09/23/2024 09:10:58 09/23/1909/23/2024 CBC (INCL UDES DIFF/ PLT) MPV 10.3 fL 7.5-12 .5 normal Not Available [facility] [address], [address], 09/23/2024 09:10:58 09/23/19 25 09/23/2024 CBC (INCL UDES DIFF/ PLT) absolute neutrophils 3714 cells /uL 1500-7 800 normal Not Available [address], [address], 09/23/2024 09:10:58 09/23/19 25 09/23/2024 CBC (INCL UDES DIFF/ PLT) absolute lymphocytes 1786 cells /uL 850-39 00 normal Not Available [address], [address], 09/23/2024 09:10:58 09/23/19 25 09/23/2024 CBC (INCL UDES DIFF/ PLT) absolute monocytes 502 cells /uL 200-95 0 normal Not Available [address], [address], 09/23/2024 09:10:58 09/23/19 25 09/23/2024 CBC (INCL UDES DIFF/ PLT) absolute eosinophils 161 cells /uL 15-500 normal Not Available [address], [address], 09/23/2024 09:10:58 09/23/19 25 09/23/2024 CBC (INCL UDES DIFF/ PLT) absolute basophils 37 cells /uL 0-200 normal Not Available [address], [address], 09/23/2024 09:10:58 09/23/19 25 09/23/2024 CBC (INCL UDES DIFF/ PLT) neutrophils 59.9 % normal Not Available [address], [address], 09/23/2024 09:10:58 09/23/19 25 09/23/2024 CBC (INCL UDES DIFF/ PLT) lymphocytes 28.8 % normal Not Available [address], [address], 09/23/2024 09:10:58 09/23/1909/23/2024 CBC (INCL UDES DIFF/ PLT) monocytes 8.1 % normal Not Available [address], [address], 09/23/2024 09:10:58 09/23/1909/23/2024 CBC (INCL UDES DIFF/ PLT) eosinophils 2.6 % normal Not Available [facility] [address], [address], 09/23/2024 09:10:58 09/23/1909/23/2024 CBC (INCL UDES DIFF/ PLT) basophils 0.6 % normal Not Available [address], [address], 09/23/2024 09:10:58 09/23/1909/23/2024 VITAM IN B12 vitamin B12 373 pg/mL 200-11 00 normal Pleas e Note: Altho ugh the refer ence range for vitam in B12 is 200-1 100 pg/mL , it has been repor rosemary that betwe en 5 and 10% of patie nts with value s betwe en 200 and 400 pg/mL may exper ience neuro psych iatri c and hemat ologi c abnor malit ies due to occul t B12 defic iency ; less than 1% of patie nts with value s above 400 pg/mL will have sympt oms. Not Available [address], [address], 09/23/2024 09:10:59 09/23/1909/23/2024 T4, FREE T4, free 1.2 NG/dL 0.8-1. 8 normal Not Available [address], [address], 09/23/2024 09:11:00 09/23/1909/23/2024 TSH TSH 1.16 mIU/L 0.40-4 .50 normal Not Available [facility] [address] [place], [address], 09/23/2024 09:11:02 09/23/1909/23/2024 VITAM IN D,25- OH,TO TYLER,I A vitamin D,25-oh,tota l,ia 33 NG/mL 30-100 normal Vitam in D Statu s 25-OH Vitam in D: Defic iency : <20 ng/mL Insuf ficie ncy: 20 - 29 ng/mL Optim al: > or = 30 ng/mL For 25-OH Vitam in D testi ng on patie nts on D2-cummins pplem entat ion and patie nts for whom quant itati on of D2 and D3 fract ions is requi red, the [facility](TM ) 25-OH VIT D, (D2,D 3), LC/MS /MS is recom nicole d: order code [id number] (eitan ents >2yrs ). See Note 1 Note 1 For addit ional infor rishi cates e refer to http: //[facility] lilian sanchez.Thiago stDia gnost ics.c om/fa q/FAQ 199 (This link is being provi ded for infor deepthi hargrove/ rosi potter purpo ses only. ) Not Available [facility] [address] , [place], [address], 09/23/2024 09:11:03 01/18/2001/17/2025 CT, cervi ryan spine , w/o contr ast No observ ation record ed. [email or web address] [address], [address], 01/17/2025 15:57:39 01/18/2001/17/2025 XR, chest No observ ation record ed. [email or web address] [address], [address], 01/17/2025 12:47:26 01/18/20 25 01/17/2025 CT, brain , w/o contr ast No observ ation record ed. [address], [place], [address], 01/17/2025 12:47:52 01/18/20 25 01/17/2025 CT, lumba r spine , w/o contr ast No observ ation record ed. [place] [id number] [facility] [address], [place], [address], 01/17/2025 14:04:13 01/30/20 25 01/29/2025 XR, sacru m + coccy x No observ ation record ed. [address] , [place], [address], 01/30/2025 07:01:27 03/07/20 25 03/07/2025 XR, foot, 3 or more view No observ ation record ed. [email or web address] [facility] [address], [place], [address], 03/08/2025 06:57:20 03/08/20 25 03/07/2025 XR, foot, 3 or more view No observ ation record ed. [email or web address] [facility] [address] [place], [place], [address], 03/09/2025 07:05:20 Result Notes None recorded. 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 Not Available [facility] 3 04:36:38 Mammograph y abnormal 338145163 Active Not Available [facility] 3 04:36:38 External hemorrhoid s 49710951 Active Not Available [facility] 3 04:36:38 Calcificat ion of breast 388006334 Active Not Available [facility] 3 04:36:39 Breast arterial calcificat ion 594376941 Active Not Available [facility] 3 04:36:39 Acute upper respirator y infection 15956845 Active Not Available [facility] 3 04:36:39 Osteoporos is 64865545 Active 2017 Not Available [facility] 3 04:36:39 Hang nail 1750223 Active 2018 Not Available [facility] 3 04:36:38 Dry skin 99944357 Active 2018 Not Available [facility] 3 04:36:38 Peripheral arterial occlusive disease 956429824 Active 2018 Not Available [facility] 3 04:36:39 Onychomyco sis of toenails 246952370 Active 2018 Not Available [facility] 3 04:36:39 Bursitis 33935688 Active 2018 Not Available [facility] 3 04:36:39 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 6254895667213 9108 Active 2019 Not Available [facility] 3 04:36:38 Pain in toe 855729156 Active 2020 Not Available [facility] 3 04:36:39 Bilateral heel pain 1094723452762 9108 Active 2021 Not Available [facility] 3 04:36:38 Dystrophia unguium 72353987 Active 2021 Elijah Rosario DPM [address], [facility] [address], [place], [address] , [facility] 5 14:35:00 Bursitis of bursa of ankle and/or foot 866383184 Active 2021 Not Available [facility] 3 04:36:39 Bursitis of bursa of ankle and/or foot 264936510 Active 2021 Not Available [facility] 3 04:36:39 Senile osteoporos is 65678197 Active 2021 Not Available [facility] 3 04:36:38 Pain in toe 327042606 Active 2021 Not Available [facility] 3 04:36:38 Acute urinary tract infection 059446582 Active 2022 MITALI Thomas, [place] [facility] 5 16:52:04 Unable to cut own toenails 854773259 Active 2022 Elijah Rosario DPM [address], [address], [place], [address] , [place] [facility] 3 10:14:46 Irritable bowel syndrome characteri zed by constipati on 527930914 Active 2023 Regina Reynaga MD [address], [address], [place], [address] , [place] [facility] 4 11:22:29 Fatigue 55685190 Active 2023 Regina Reynaga MD [address], [address], [place], [address] , [place] [facility] 4 11:27:20 Vitamin D deficiency 13801428 Active 2023 Regina Reynaga MD [address], [address], [place], [address] , [place] [facility] 4 11:27:33 Pain in right arm 485781908 Active 2023 Jerri Shetty CMA null, [place] [facility] 4 15:28:19 Altered mental status 372941201 Active 2023 Regina Reynaga MD [address], [address], [place], [address] , [place] [facility] 4 15:51:24 Dementia 14317560 Active 2023 Jerri Shetty CMA null, [place] [facility] 5 16:53:09 Anxiety 48426969 Active 2024 Regina Reynaga MD [address], [address], [place], [address] , [facility] [place] [facility] 5 14:38:35 Urinary symptoms 044142761 Active 2024 Jerri Shetty CMA null, [place] [facility] 5 14:58:17 Constipati on 80632984 Active 2024 Jerri Shetty CMA null, [place] [facility] 5 15:19:03 Senile dementia 03903856 Active 2024 Jerri Shetty CMA null, [place] [facility] 5 15:34:41 Pain 20902480 Active 2024 Jerri Shetty CMA null, [place] [facility] 5 16:13:05 Dementia with behavioral disturbanc e 2252495662651 Active 2024 Regina Reynaga MD [address], [address], [place], [address] , [facility] 5 13:37:20 Swelling of left foot 722410064 Active 2024 Jerri Shetty CMA null, [facility] [place] [facility] 5 13:53:49 Problem Notes None recorded. Procedures Surgical History Date Name Laterality Status Provider Name and Address Organization Details Recorded Time 5 Nail Debridement completed Elijah Rosario DPM [address], [address], [place], [address], [facility] 10/20/2024 14:34:52 5 Nail Debridement completed Elijah Rosario DPM [address], [address], [place], [address], [facility] 07/14/2024 14:35:44 4 Nail Debridement completed Elijah Rosario DPM [address], [address], [place], [address], [facility] 04/07/2024 17:19:36 4 Nail Debridement completed Elijah Rosario DPM [address], [address], [place], [address], [facility] 01/18/2024 10:29:51 4 Medicare Wellness CPT Code, subsequent completed Dottie Herron RN [facility] 11/23/2023 10:58:17 4 Nail Debridement completed Elijah Rosario DPM [address], [address], [place], [address], [facility] 10/29/2023 13:46:52 4 Nail Debridement completed Elijah Rosario DPM [address], [address], [place], [address], [facility]ku [facility] 07/09/2023 13:47:28 3 Nail Debridement completed Elijah Rosario DPM [address], [address], [place], [address], [facility]ku [facility] 03/12/2023 15:22:54 3 Nail Debridement completed Elijah Rosario DPM [address], [address], [place], [address], [facility]ku [facility] 12/04/2022 14:42:10 3 Medicare Wellness CPT Code, subsequent completed Dottie Herron RN [facility] 11/13/2022 10:43:48 3 Nail Debridement completed Elijah Rosario DPM [address], [place], [address], [facility] 07/22/2022 10:14:07 Imaging Results None recorded. Procedure Notes None recorded. Medical Equipment None Reported. Allergies Allergen ID Allergen Name Allergen Category Reaction Reaction Severity Criticality Documentation Date Start Date Code Code System Note Provider Name and Address Organization Details Recorded Time 66 Cipro medicatio n itching Not available Not available 07/02/2022 21466 3 RxNorm Not Available [facility] 3 04:45:07 6767 Bactrim medicatio n rash Not available Not available 07/02/2022 39246 9 RxNorm Not Available [facility] 3 04:45:07 Medications Name Sig Start Date Stop Date Status Note LastModified by Organization Details LastModified Time quetiapine 25 mg tablet Take one capsule every morning and 2 capsules in the evening 02/23 completed Not Available Not Available Not Available amoxicillin 500 mg capsule Take 1 capsule 3 times a day by oral route for 10 days. 07/28 completed Not Available Not Available Not Available donepezil 5 mg tablet Take 1 tablet every day by oral route. 05/23 completed Not Available Not Available Not Available hydrocodone 5 mg-acetamin ophen 325 mg tablet TK 1 T PO Q 4 H PRN P active Not Available Not Available No t Available prednisone 20 mg tablet TAKE 3 TABLETS DAILY FOR 2 DAYS, TAKE 2 TABLETS DAILY FOR 2 DAYS, TAKE 1 TABLET DAILY FOR 2 DAYS 11/07 completed Not Available Not Available Not Available olanzapine 5 mg tablet Take 1 tablet twice a day by oral route. active Not Available Not Available No t Available triamcinolo ne acetonide 0.025 % lotion APPLY A THIN LAYER TO AFFECTED AREA ON LEFT HEEL BID PRN 05/14 completed Not Available Not Available Not Available quetiapine 100 mg tablet Take 1 tablet twice a day by oral route. 02/23 completed Not Available Not Available Not Available amoxicillin 500 mg tablet Take 1 tablet every 8 hours by oral route. 11/07 completed Not Available Not Available Not Available prednisolon e acetate 1 % eye drops,suspe nsion 05/23 completed Not Available Not Available Not Available lorazepam 0.5 mg tablet Take 1 tablet 3 times a day by oral route as needed, for Anxiety. 03/01 completed Not Available Not Available Not Available cephalexin 500 mg capsule Take 1 capsule 4 times a day by oral route. 2024 active Not Available Not Available Not Avai lable docusate sodium 100 mg capsule Take 1 capsule every day by oral route as needed. active Not Available Not Available No t Available gentamicin 0.1 % topical cream MONICA AA D 07/20 completed Not Available Not Available Not Available hydrocortis one 2.5 % topical cream APPLY EXTERNALL Y TO THE AFFECTED AREA OF FLAKY RASH TWICE DAILY 05/14 completed Not Available Not Available Not Available lorazepam 1 mg tablet Take 1 tablet 3 times a day by oral route. 2024 active Not Available Not Available Not Avai lable ketoconazol e 2 % topical cream APPLY TO THE AFFECTED AREA(S) BY TOPICAL ROUTE ONCE DAILY active Not Available Not Available No t Available cefdinir 300 mg capsule Take 1 capsule every 12 hours by oral route. active Not Available Not Available No t Available neomycin-po lymyxin-hyd rocort 3.5 mg-10,000 unit/mL-1 % ear drops,susp INSTILL 4 DROPS INTO AFFECTED EAR(S) BY OTIC ROUTE 3 TIMES PER DAY 11/07 completed Not Available Not Available Not Available ketorolac 0.4 % eye drops INSTILL 1 DROP IN RIGHT EYE THREE TIMES DAILY 11/07 completed Not Available Not Available Not Available memantine 10 mg tablet Take 1 tablet twice a day by oral route. 11/18 completed Not Available Not Available Not Available PreserVisio n AREDS 4,296 mcg-226 mg-90 mg capsule Take 1 capsule every day by oral route. active Not Available Not Available No t Available quetiapine 50 mg tablet Take 1 tablet twice a day by oral route. 2024 active Not Available Not Available Not Avai lable calcium 500 mg (as carbonate)- vitamin D3 15 mcg (600 unit) tablet Take 1 tablet twice a day by oral route. active Not Available Not Available No t Available [facility] [facility] AREDS-2 05/08 completed Not Available Not Available Not Available Os-Ryan + D3 one twice a day 05/08 completed Not Available Not Available Not Available Tylenol 325 mg capsule take 1 to 2 capsules 4 times a day as needed for pain 2024 active Not Available Not Available Not Avai lable Vitals Date Recorded Body height Body mass index (BMI) Body weight Heart rate Body temperature Oxygen saturation Oxygen saturation in Arterial blood by Pulse oximetry Systolic And Diastolic Provider Name and Address Organization Details Last Updated DateTime 5 160.02 cm 22.1 kg/m2 25526.2 5 g 72 /min 97 [degF] 98 % 98 % 132/70 mm[Hg] Juana [facility] [place] [facility] 5 10:34:35 Date Recorded Body height Body mass index (BMI) Body weight Heart rate Respiratory rate Oxygen saturation Oxygen saturation in Arterial blood by Pulse oximetry Systolic And Diastolic Provider Name and Address Organization Details Last Updated DateTime 5 160.02 cm 22 kg/m2 60955.4 5 g 82 /min 14 /min 98 % 98 % 107/61 mm[Hg] Cordelia [facility] 5 14:03:56 Date Recorded Body height Body mass index (BMI) Body weight Body temperature Heart rate Systolic And Diastolic Provider Name and Address Organization Details Last Updated DateTime 5 160.02 cm 22.1 kg/m2 11114.0 5 g 97.2 [degF] 66 /min 124/74 mm[Hg] RAMON Patel [facility] 5 11:21:39 Date Recorded Body height Body mass index (BMI) Body weight Heart rate Respiratory rate Oxygen saturation Oxygen saturation in Arterial blood by Pulse oximetry Provider Name and Address Organization Details Last Updated DateTime 5 160.02 cm 22.1 kg/m2 41782.0 5 g 71 /min 14 /min 98 % 98 % Cordelia [facility] 5 14:00:55 Date Recorded Body height Body mass index (BMI) Body weight Heart rate Respiratory rate Oxygen saturation Oxygen saturation in Arterial blood by Pulse oximetry Systolic And Diastolic Provider Name and Address Organization Details Last Updated DateTime 4 160.02 cm 22 kg/m2 84135.4 5 g 82 /min 14 /min 97 % 97 % 133/71 mm[Hg] Cordelia Leal [facility] 4 12:14:52 Social History Question Answer Notes LastModified by Organization Details LastModified Time Tobacco Smoking Status Never Smoker Not Available [facility] 07/02/2022 04:19:57 Do You Have An Advance Directive? Yes [email or web address] Information not available 11/23/2023 Are You Blind Or Do You Have Difficulty Seeing? No [id number] Information not available 07/02/2022 What Is Your Level Of Caffeine Consumption? Occasional [id number] Information not available 07/02/2022 In The 14 Days Before Symptom Onset, Have You Had Close Contact With A Laboratory-confi rmed COVID-19 While That Case Was Ill? No [id number] Information not available 07/02/2022 In The 14 Days Before Symptom Onset, Have You Had Close Contact With A Person Who Is Under Investigation For COVID-19 While That Person Was Ill? No MIGRATION.0301 [id number] Information not available 07/02/2022 Are You Deaf Or Do You Have Serious Difficulty Hearing? Yes MIGRATION.0301 [id number] Information not available 07/02/2022 What Type Of Diet Are You Following? REGULAR MIGRATION.0301 [id number] Information not available 07/02/2022 Which Illicit Or Recreational Drugs Have You Used? None MIGRATION.0301 367231 Information not available 07/02/2022 Have There Been Any Changes To Your Family Or Social Situation? No MIGRATION.0301 [id number] Information not available 07/02/2022 What Is The Fluoride Status Of Your Home? Unknown [email or web address] Information not available 11/13/2022 Are There Any Guns Present In Your Home? No [email or web address] Information not available 11/13/2022 Do You Use Insect Repellent Routinely? No MIGRATION.0301 [id number] Information not available 07/02/2022 Where Do You Live? [place]House MIGRATION.0301 888558 Information not available 07/02/2022 Guns Present In The Home? No [email or web address] Information not available 11/13/2022 Are You Able To Care For Yourself? Yes [email or web address] Information not available 11/13/2022 Are You Blind Or Do Yo Have Difficulty Seeing? No [email or web address] Information not available 11/13/2022 Are You Deaf Or Do You Have Serious Difficulty Hearing? Yes Has Hearing Aids [email or web address] Information not available 11/13/2022 Live Alone Of With Others? With Others [email or web address] Information not available 11/13/2022 Do You Have A Medical Power Of Medical Delivery Driver? Yes [email or web address] Information not available 11/23/2023 What Was The Date Of Your Most Recent Tobacco Screening? 11/23/2023 [email or web address] Information not available 11/23/2023 Do You Have Any Pets? No MIGRATION.0301 229158 Information not available 07/02/2022 What Is Your Relationship Status? MIGRATION.0301 333450 Information not available 07/02/2022 Do You Use Your Seat Belt Or Car Seat Routinely? Yes MIGRATION.0301 436347 Information not available 07/02/2022 Do You Have Smoke And Carbon Monoxide Detectors In Your Home? Yes MIGRATION.0301 [id number] Information not available 07/02/2022 Are You Passively Exposed To Smoke? No MIGRATION.0301 [id number] Information not available 07/02/2022 Are There Any Smokers In Your House? No MIGRATION.0301 192052 Information not available 07/02/2022 Do You Use Sunscreen Routinely? No MIGRATION.0301 045142 Information not available 07/02/2022 Have You Recently Traveled Abroad? No MIGRATION.0301 731934 Information not available 07/02/2022 Do You Have Difficulty Walking Or Climbing Stairs? No MIGRATION.0301 418223 Information not available 07/02/2022 Do You Have Any Dietary Restrictions? No MIGRATION.0301 439189 Information not available 07/02/2022 Sex: Female Functional Status Question Answer Note LastModified by Organizat ion Details LastModified Time What is your level of alcohol consumption? None MIGRATION.[id number] 026 Information not available 07/02/2022 Do you have transportation difficulties? No MIGRATION.[id number] 026 Information not available 07/02/2022 Are you able to walk independently without assistance or assistive devices? YESWOREST MIGRATION.[id number] 026 Information not available 07/02/2022 Do you have difficulty doing errands alone? Yes [email or web address] Information not available 11/23/2023 Are you able to care for yourself independently? Yes MIGRATION.[id number] 026 Information not available 07/02/2022 Do you have difficulty dressing, bathing, grooming, or toileting? No MIGRATION.9488153 026 Information not available 07/02/2022 What is your exercise level? Occasional MIGRATION.[id number] 026 Information not available 07/02/2022 Mental Status Question Answer Note LastModified by Organization D etails LastModified Time Do you have difficulty concentrating, remembering or making decisions? Yes [email or web address] Information no t available 11/23/2023 Family History Nothing Reported Notes:Mother 61 from me tastatic Ca of breast Father diedk75 from Dementia and DM One sister living history of renal calculi Medical History Condition Response NERVE DISEASE N BLINDNESS N RHEUMATIC FEVER N KIDNEY STONES N BLADDER PROBLEMS N MRSA N OTHER # 1 N POLIO N LUNG DISEASE/DISORDER N HISTORY OF DRUG ABUSE N COPD N RADIATION / CHEMOTHERAPY N Other # 2 N BLOOD DISEASES N EAR OR HEARING PROBLEMS N MUMPS N SHINGLES N DEPRESSION (INCLUDING POST ) N BOWEL PROBLEMS N STROKE/TIA N ULCERS N BENIGN PROSTATIC HYPERPLASIA N MEASLES N HYPOTENSION N MYOCARDIAL INFARCTION N OBESITY N GERD/NAUSEA N ANEURYSM N URINARY/BLADDER/KIDNEY PROBLEMS N CORONARY ARTERY DISEASE (CAD) N ADDICTION CONCERNS N Impotence N ENDOMETRIOSIS N USE OF BLOOD THINNERS N SKIN PROBLEMS N GASTROINTESTINAL DISORDER N PERIPHERAL VASCULAR DISEASE N MUSCLE,JOINT OR BONE PROBLEMS N GASTROINTESTINAL BLEEDING N BLOOD CLOTS N ASTHMA N CATARACTS N ERECTILE DYSFUNCTION N VARICOSITIES N GI PROBLEMS N Low Testosterone N INFERTILITY N AIDS/HIV N CHEMOTHERAPY / RADIATION N LIVER DISEASE N MALE HYPOGONADISM N HYPERTENSION N Deficiency N TOURETTE'S N ANXIETY DISORDER N BLOOD TRANSFUSION N ANEMIA/BLOOD DISORDER N CHRONIC EAR INFECTIONS N BRONCHITIS N TUBERCULOSIS N GLAUCOMA N FOOT PROBLEM N DIVERTICULITIS N SLEEP APNEA N CHICKENPOX N INFECTIOUS DISEASE N PROSTATE N HEART ARRHYTHMIA N INSOMNIA N HIGH CHOLESTEROL / HYPERLIPIDEMIA N HYPERTHYROIDISM N EYE PROBLEMS N EDEMA N CHRONIC PAIN SYNDROME N HYPOTHYROIDISM N CONSTIPATION N CAROTID BLOCKAGE N BACK / NECK PROBLEMS N HAVE YOU BEEN HOSPITALIZED OR SEEN IN [facility] IN THE PAST YEAR ? N ATHEROSCLEROSIS N BREAST PROBLEMS N DIALYSIS N ECZEMA N OSTEOPOROSIS Y ARTHRITIS N NO SIGNIFICANT PAST MEDICAL HISTORY N APPENDICITIS N DIABETES, TYPE N BAD TEETH N ENT N HEARTBURN / REFLUX N AUTISM SPECTRUM DISORDER (ASD) N HEPATITIS / LIVER DISEASE N GOUT N SLEEP DISORDER N ALZHEIMER'S DISEASE N Brain Problems N HERPES N DEMENTIA N SEIZURES/EPILEPSY N HEADACHES/MIGRAINES N VASCULAR DISEASE N PACEMAKER N Blood Disorder N DIZZINESS N KIDNEY DISEASE N HEART DISEASE/HEART PROBLEMS N MULTIPLE SCLEROSIS N CARDIAC ARRHYTHMIA N CANCER: SPECIFY N Gall Stones N ATRIAL FIBRILLATION N PULMONARY EMBOLISM N AUTOIMMUNE DISEASE N Gynecological HistoryNo gynecological history recorded. Obstetrics History GPAL:G 0 P 0 0 0 0 Immunizations Vaccine Type Date Status Note Provider Nam e and Address Organization Details Recorded Time COVID-19, mRNA, LNP-S, PF, 100 mcg/0.5mL dose or 50 mcg/0.25mL dose completed Not Available [facility] 07/02/2022 04:44:48 SARS-COV-2 (COVID-19) vaccine, UNSPECIFIED 1 completed Not Available [facility] 07/02/2022 04:44:48 SARS-COV-2 (COVID-19) vaccine, UNSPECIFIED 1 completed Not Available [facility] 07/02/2022 04:44:48 Past Encounters Encounter ID Performer Location Encounter Start Date Encounter Closed Date Diagnosis/Indication Diagnosis SNOMED-CT Code Diagnosis ICD10 Code Diagnosis IMO Codes Diagnosis Note [id number] Elijah Rosario DPM [facility] [place] [address] [address] 08/30/2020 00:00:00 08/30/2020 11:32:01 [id number] Regina Reynaga MD [facility] Internal [facility] [address] [address] 09/13/2020 00:00:00 09/13/2020 11:16:48 [id number] S_Histor ic_[facility] _ATHENA_M IGRATION_ DEFAULT_1 _1 , 10/12/2020 00:00:00 10/12/2020 11:59:10 [id number] Agustín Nicole MD [facility] [place] [id number] [facility] [address] [place] [address] 10/29/2020 00:00:00 10/29/2020 16:00:01 [id number] Regina Reynaga MD [facility] [address] [address] 11/07/2020 00:00:00 11/07/2020 14:27:31 [id number] Elijah Rosario DPM [facility] [place] [address] [address] 11/29/2020 00:00:00 11/29/2020 21:43:24 [id number] Elijah Rosario DPM [facility] [place] [address] [address] 02/28/2021 00:00:00 02/28/2021 12:13:07 [id number] Regina Reynaga MD [facility] [address] [address] 05/15/2021 00:00:00 05/15/2021 11:10:57 [id number] Elijah Rosario DPM [facility] [place] [address] [place] [address] 05/30/2021 00:00:00 05/30/2021 13:59:59 [id number] Elijah Rosario DPM [facility] [place] [address] [place] [address] 06/13/2021 00:00:00 06/13/2021 14:04:28 [id number] Elijah Rosario DPM [facility] [place] [address] [place] [address] 08/22/2021 00:00:00 08/22/2021 12:26:32 [id number] Regina Reynaga MD [facility] Internal [facility] [address] [address] 11/06/2021 00:00:00 11/06/2021 10:48:03 [id number] [facility] [address] [place] [address] 11/21/2021 00:00:00 11/21/2021 15:11:46 [id number] Elijah Rosario DPM [facility] [place] [address] [address] 02/20/2022 00:00:00 02/20/2022 14:50:04 [id number] Regina Reynaga MD [facility] [address] [address] 05/08/2022 00:00:00 05/08/2022 11:23:05 [id number] Elijah Rosario DPM [facility] [place] [address] [address] 07/22/2022 09:39:34 07/22/2022 14:12:35 Pain in toe 097074466 M79.676 secondary to elongated toenails Dystrophia unguium 51059 009 L60.3 Nails 1 through 10 were debrided with sharp mechanical debridemen t without incident. Nails were debrided and greater than 50% length and thickness where needed. Unable to cut own toenails 154104537 Z74.1 [id number] Regina Reynaga MD [facility] Internal Med [facility] [address] [address] 11/13/2022 10:26:11 11/13/2022 11:01:38 Adult health examination 585259711 Z00.00 Screening for disorder 109320102 Z13.9 Osteoporosis 37905763 M8 1.0 [id number] Elijah Rosario DPM [facility] [place] [address] [place] [address] 12/04/2022 14:18:22 12/04/2022 14:45:54 Dystrophia unguium 99471337 L60.3 Nails 1 through 10 were debrided with sharp mechanical debridemen t without incident. Nails were debrided and greater than 50% length and thickness where needed. Unable to cut own toenails 255450716 Z74.1 [id number] Elijah Rosario DPM [facility] [place] [address] [place] [address] 03/05/2023 14:49:40 03/13/2023 11:21:18 Onychomycosis of toenails 447952147 B35.1 Nails debrided without incidentMa y utilize over-the-c ounter topical medication Follow-up in 3 months as needed Pain in toe 103385670 M7 9.676 secondary to elongated toenails Unable to cut own toenails 668896717 Z74.1 [id number] Regina Reynaga MD [facility] Internal Med [facility] [address] [address] 05/14/2023 10:51:11 05/14/2023 11:31:07 Osteoporosis 51161092 M81.0 Irritable bowel syndrome characterized by constipation 302424632 K58.1 Screening for cardiovascular system disease 709111206 Z13.6 Fatigue 05766530 R53.83 Vitamin D deficiency 347 49367 E55.9 [id number] Elijah Rosario DPM [facility] [address] [place] [address] 07/09/2023 11:15:51 07/09/2023 13:56:44 Dystrophia unguium 77445357 L60.3 Nails 1 through 10 were debrided with sharp mechanical debridemen t without incident. Nails were debrided and greater than 50% length and thickness where needed. Pain in toe 494161537 M7 9.676 secondary to elongated toenails [id number] [facility] [address] [address] 10/06/2023 12:27:06 10/29/2023 15:08:56 Pain in toe 601631093 M79.676 secondary to elongated toenails Dystrophia unguium 05391 009 L60.3 Nails 1 through 10 were debrided with sharp mechanical debridemen t without incident. Nails were debrided and greater than 50% length and thickness where needed. [id number] MD DAMION Maya[facility] Internal Med [facility] [address] [address] 11/23/2023 10:30:41 11/23/2023 11:32:46 Adult health examination 191993482 Z00.00 Screening for disorder 315768780 Z13.9 Irritable bowel syndrome characterized by constipation 328542384 K58.1 Peripheral arterial occlusive disease 736172052 I73.9 Minimal co gnitive impairment 845073878 R41.89 [id number] Elijah Rosario DPM [facility] [address] [address] 01/05/2024 12:26:28 01/18/2024 13:59:26 Pain in toe 750867753 M79.676 secondary to elongated toenails Dystrophia unguium 20624 009 L60.3 Nails 1 through 10 were debrided with sharp mechanical debridemen t without incident. Nails were debrided and greater than 50% length and thickness where needed. [id number] Regina Reynaga MD [facility] Internal Med [facility] [address] [address] 02/17/2024 15:28:53 02/17/2024 16:17:31 Altered mental status 434578028 R41.82 Memory impairment 759771 006 R41.3 [id number] Regina Reynaga MD [facility] Internal [facility] [address] [address] 03/09/2024 10:33:07 03/09/2024 11:11:25 Dementia 64968521 F03.92 [id number] Elijah Rosario DPM [facility] [place] [address] [address] 04/07/2024 12:11:35 04/29/2024 14:37:29 Dystrophia unguium 13452649 L60.3 Nails 1 through 10 were debrided with sharp mechanical debridemen t without incident. Nails were debrided and greater than 50% length and thickness where needed. Pain in toe 660972689 M7 9.676 secondary to elongated toenails Unable to cut own toenails 703917729 Z74.1 [id number] Regina Reynaga MD [facility] Internal Med [facility] [address] [address] 05/23/2024 10:34:00 05/23/2024 10:51:24 Dementia 85646663 F03.92 Irritable bowel syndrome characterized by constipation 367915664 K58.1 [id number] Elijah Rosario DPM [facility] [place] [address] [place] [address] 07/14/2024 13:54:14 07/19/2024 11:01:52 Pain in toe 046295595 M79.676 secondary to elongated toenails Dystrophia unguium 84343 009 L60.3 Nails 1 through 10 were debrided with sharp mechanical debridemen t without incident. Nails were debrided and greater than 50% length and thickness where needed. [id number] Regina Reynaga MD [facility] Internal Med [facility] [address] [address] 09/19/2024 11:11:23 09/19/2024 11:46:09 Dementia 85641644 F03.92 Peripheral arterial occlusive disease 869427365 I73.9 Osteoporosis 98187358 M8 1.0 [id number] Elijah Rosario DPM [facility] [place] [address] [facility] [place] [address] 10/20/2024 13:18:11 10/24/2024 07:58:19 Dystrophia unguium 85072491 L60.3 1009 Nails 1 through 10 were debrided with sharp mechanical debridemen t without incident. Nails were debrided and greater than 50% length and thickness where needed. Unable to cut own toenails 174866832 Z74.1 Health Concerns Section Related Observation LastModified by Organization Detai ls LastModified Time None Recorded Concern Status LastModified by Organization Details LastModified Time None Recorded Advance Directives Directive Y: Payers Insurance Date Sequence Insurance Name Policy Number Policy Aragon Covered Member ID Aragon Member ID Guarantor Name 07/14/2024 1 [place] Lynn Diamondmidt [id number] Lynn Zhaoschmidt 07/22/2022 2 [place]aya [id number] Elbert Diamondmidt [id number] Lynn Ramo 10/24/2024 1 [facility] (MEDICARE REPLACEMENT/ ADVANTAGE - PPO) [id number] Lynn Zhaoschmidt [id number] Lynn Zhaoschmidt 07/14/2024 2 Panaya Lynn Zhaoschmidt [id number] Lynnsanju Diamondmidt Notes Date Note Type Note Provider Name and Address Organization Details Recorded Time 04/07/20 24 text/htm l . Patient is an 83-year-old female who returns the office for painful toenails. Patient is unable to bend over to cut her nails states they are long and painful. Patient denies any redness or drainage. Patient denies any other complaints. Elijah Rosario, DPM [address], [facility] [address], [place], [address], [place] [facility] 04/07/2024 17:20:12 05/23/19 25 text/htm l Patient Name: Lynn RalphDate Of Service: Thursday ( 05.23.2024 ): 1940 Age: 84 Vital Signs:Blood Pressure: Sitting Rt. Arm 132/70Pulse: Sitting 72 /min and RegularRespiratory Rate: 16Height 63 in or 1.6 mWeight 124.5 lb or 56.5 kgBMI 22.1Temperature: 97 F or 36.1 CPulse Oximetry: 98 % at rest on no oxygen Chief Complaint: Addressed in HPI Problems or conditions discussed in the HPI were the only ones reviewed during the encounter.Only social and family history addressed in the HPI were reviewed during this encounter. Attendant(s): NoneConstitutional and Systemic Symptoms:none Medication Reconciliation: from medication list. Jtthnqslqlr37-18-6062: MRI of the brain shows moderate nonspecific cerebral white matter disease which likely represents chronic small-vessel ischemic disease. History of Present Illness #1. Hx of dementia. Currently stable. There has been no clinical change in cognitive functions. Performance of activities of daily living has remained unchanged. Currently taking Namenda Mini-Cog Score: Mild Cognitive Impairment #2. Hx of irritable bowel syndrome manifested predominately by constipation. No interval complaints of any change in bowel habits, pain, weight loss or other constitutional symptoms. There has been no hematemesis or hematochezia. Active Medication ListOs-ryan D 500 MG One Tid For Calcium ReplacementPreservision Vitamins One DailyMemantine 10 MG TABLET One Twice A DayLinzess 72 UG CAPSULE, GELATIN COATED One Daily Adverse Drug Reactions ReviewedCipro Rash Vaccination and Immunization(X) 2020- COVID [facility] Surgical Djujkeg1588-89 Right Tyebsckd1982-71 Rt. 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 Patient is 84-year-old female who returns the office for follow-up on routine foot care. Patient has thickened elongated toenails she states they are painful with walking she denies any new complaints and would like to have them cut. Elijah Rosario DPM [address], [address], [place], [address], [employer] 07/14/2024 14:36:13 09/20/19 25 text/htm l Patient Name: Lynn RalphDate Of Service: Thursday ( 09.19.2024 ): 1940 Age: 84 Vital Signs:Blood Pressure: Sitting Rt. Arm 124/74Pulse: Sitting 66 /min and RegularRespiratory Rate: 16Height 63 in or 1.6 mWeight 125 lb or 56.7 kgBMI 22.1Temperature: 97.2 F or 36.2 C Chief Complaint: Addressed in HPI Problems or conditions discussed in the HPI were the only ones reviewed during the encounter.Only social and family history addressed in the HPI were reviewed during this encounter. Attendant(s): DaughterConstitutional and Systemic Symptoms:none Medication Reconciliation: from medication list. [id number]: MRI of the brain shows moderate nonspecific cerebral white matter disease which likely represents chronic small-vessel ischemic disease. History of Present Illness #1. Hx of dementia. Currently stable. There has been no clinical change in cognitive functions. Performance of activities of daily living has remained unchanged. Currently taking Namenda Mini-Cog Score: Severe Cognitive Impairment #2. Hx of peripheral vascular disease. There has been no increase in intensity, severity or duration of claudication symptoms. Exertional capacity has remained essentially unchanged. Is able to walk one block without developing any claudication. No rest pain noted. #3. osteoporosis. No new complaints of any additional back,hip or other musculoskeletal complaints related to the osteoporosis. No hx of any recent trauma. Currently taking no medication the patient has refused calcium as well as bisphosphonates. Has has had a recent DEXA scan done within the last year. The FRAX Score for Hip Fracture is NA hx osteoporosis FRAX score for major fractures NA hx of osteoporosis Wellness Evaluation Mini Mental Status Exam Time Score: 1Location Score: 3Registration Score: 3Attention Score: 2Recall Score: 0Language Score: 2Repetition Score: 0Sentence Score: 0Reading Score: 1Pentagons Score: 0Command Score: 0 12 Moderate Impairment No Living Will on File! Active Medication ListOs-ryan D 500 MG One Tid For Calcium Replacement CitracalPreservision Vitamins One Daily Aereds IIMemantine 10 MG TABLET One Bid Adverse Drug Reactions ReviewedCipro Rash Vaccination and ImmunizationImmunizations and Vaccinations Discussed and Implemented if feasible In the Office. Else referred to pharmacies. (X) 2020- COVID [facility] Surgical Mkrcrle6770-36 Right Fafzdsma5218-15 Rt. 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 Patient is 84-year-old female she returns for routine foot care. Patient has dementia she is unable to care for her feet. Patient denies any other complaints. Elijah Rosario DPM [address], [facility] [address], [place], [address], [employer] 10/20/2024 14:35:34 OBGyn Episode No OBEpisode recorded.
--- OUTSIDE RECORDS SUMMARY | 2025-03-09 21:13 | XMS_ITS | Clinical Summary ---
Author Organization [facility] Address [address] [place] [address] Care Team Providers Care Cloth Washer Operator Name Role Phone Unavailable Primary Care Provider Unavailabl e Source Comments [facility],non-owned Affiliates and Associated Physician Practices is amultiple site organization consisting of ambulatory clinics and hospital sitesin [place], [place], [place] and [place]. This disclosure is being madepursuant to the Care Everywhere program and may not contain all information available regarding this patient. Last updated 18.[facility] [employer] Social History Tobacco Use Types Packs/Day Years [...]
[2025-03-09 21:26] VITALS: PULSE 77; RESP 14; O2SAT 100
[2025-03-09 21:28] VITALS: BP 118/62; PULSE 77; RESP 17; O2SAT 100
--- OUTSIDE RECORDS SUMMARY | 2025-03-09 22:03 | XMS_ITS | Encounter Summary ---
Author Organization [facility] Address [address] [place] [address] Care Team Providers Care Cardiothoracic Icu Rn Name Role Phone Unavailable Primary Care Provider Unavailabl e Encounter Details Date Type Department Care Team (Late st Contact Info) Description 12/25/2022 Lab Requisition [facility] - DermPath Lab [address] [place] [id number] Kendell Brar MD [address] [place], [place] [id number] Social History Tobacco Use Types Packs/Day Years [...] AM CDT) Case Report Dermatopathology Report Case: [id number] Authorizing Provider: Kendell Brar MD Collected: 12/24/2022 12:00 AM Ordering Location: [facility] DermPath Lab Received: 12/26/2022 08:55 AM Pathologist: [...] measuring 15x5x1 mm. Jar 0. 3:35 PM [facility] DERMATOPATHOLOGY LABORATORY Microscopic Description Specimen A. SKIN, [...] characteristic determined by the Dermatopathology Laboratory at [facility], directed by Dr. Mihai Mclain. These tests need not be, and therefore are not, approved by the [place] Food and Drug Administration. The tests are used for clinical purposes. Billing Codes Specimen Charges Stain Charges 71249 1 3:35 PM T DERMATOPATHOLOGY LABORATORY Embedded Images 3:35 PM T DERMATOPATHOLOGY LABORATORY Pathology/Cytolog y TISSUE SPECIMEN FROM SKIN / Unknown 12/24/2022 12/26/2022 8:55 AM CDT Kendell Brar MD LAB - PATHOLOGY/CYTOLOGY ORD ERABLES Final Result DERMATOPATHOLOGY LABORATORY [facility] - Department of Dermatology [address], [address] [phone] documented in this encounter Visit Diagnoses Not on filedocumented in this encounter
--- OUTSIDE RECORDS SUMMARY | 2025-03-09 22:03 | XMS_ITS | Encounter Summary ---
Author Organization [facility] Address [address] [place] [address] Care Team Providers Care Bulkhead Carpenter Name Role Phone Unavailable Primary Care Provider Unavailabl e Encounter Details Date Type Department Care Team (Late st Contact Info) Description 02/08/2020 Lab Requisition [facility] DermPath Lab [address] [place] [address] Kendell Brar MD [address] [place] [address] Social History Tobacco Use Types [...] AM CDT) Case Report Dermatopathology Report Case: [id number] Authorizing Provider: Kendell Brar MD Collected: 02/07/2020 12:00 AM Ordering Location: [facility] DermPath Lab Received: 02/08/2020 01:14 [...] characteristic determined by the Dermatopathology Laboratory at [facility], directed by Dr. Mihai Mclain. These tests need not be, and therefore are not, approved by the [place] Food and Drug Administration. The tests are used for clinical purposes. Billing Codes Specimen Charges Stain Charges 09380 1 0 3:17 PM CDT DERMATOPATHOLOGY LABORATORY Embedded Images 0 3:17 PM CDT DERMATOPATHOLOGY LABORATORY Pathology/Cytolog y TISSUE SPECIMEN FROM SKIN / Unknown 02/07/2020 02/08/2020 1:14 PM CDT Kendell Brar MD LAB - PATHOLOGY/CYTOLOGY ORD ERABLES Final Result DERMATOPATHOLOGY LABORATORY [facility] - Department of Dermatology [address] [phone] documented in this encounter Visit Diagnoses Not on filedocumented in this encounter
--- OUTSIDE RECORDS SUMMARY | 2025-03-09 22:03 | XMS_ITS | Clinical Summary ---
Author Organization [facility] Address [address] [place] [address] Care Team Providers Care Filtration Plant Mechanic Name Role Phone Unavailable Primary Care Provider Unavailabl e Source Comments [facility],non-owned Affiliates and Associated Physician Practices is amultiple site organization consisting of ambulatory clinics and hospital sitesin [place], [place], [place] and [place]. This disclosure is being madepursuant to the Care Everywhere program and may not contain all information available regarding this patient. Last updated 18.[facility] Networked Organisms Social History Tobacco Use Types Packs/Day Years [...]
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
[2025-03-09] MEDS: OLANZapine 10 MG, WATER, STERILE FOR INJECTION 2.1 ML IM (22:39)
[2025-03-09 22:53] VITALS: BP 122/76; PULSE 78; RESP 15; O2SAT 100
== END 2025-03-09 22:54 ==
PROVIDERS: Emergency Provider Emergency Medicine; PCP Internal Medicine
DX: F03.C11 Unspecified dementia, severe, with agitation (principal)
CPT/HCPCS: 96372; 99283; J2359